=== PATIENT | female | born 1950 | race Caucasian/White ===

== ENCOUNTER 2025-04-19 16:23 | Emergency (ER) | payer MEDICARE, MEDICAID, SELFPAY ==
[2025-04-19 16:24] VITALS: BP 178/104; PULSE 90; RESP 20; TEMP 36.5; O2SAT 91; BMI 37.8
[2025-04-19 16:29] VITALS: O2SAT 97
--- NOTE | 2025-04-19 16:51 | RAD_ITS ---
PROCEDURE: HUMERUS MIN 2 VIEWS 04/19/2025 REASON FOR EXAM: FALL TECHNIQUE: Procedure Code: RADHUM Modality: DX Procedure: HUMERUS MIN 2 VIEWS COMPARISON: None RAD/Humerus min 2 Views IMPRESSION: No acute fracture or dislocations. Moderate degenerative changes of the right shoulder. Extensive soft tissue edema about the humerus. No radiographic foreign body. [id number]
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
--- NOTE | 2025-04-19 17:05 | CT_ITS ---
PROCEDURE: SPINE CERVICAL WITHOUT CONTRAS 04/19/2025 REASON FOR EXAM: FALL TECHNIQUE: Procedure Code: CTSPC Modality: CT Procedure: SPINE CERVICAL WITHOUT CONTRAS Coronal and Sagittal reconstruction series were provided. One or more dose reduction techniques were used (e.g., Automated exposure control, adjustment of the mA and/or kV according to patient size, use of iterative reconstruction technique. RADIATION DOSE SUMMARY: CTDlvol: 70 mGy DLP: 1285 mGycm FINDINGS: Normal appearance of C1, C2 and occipital condyles. Facet arthrosis but no facet fracture. No compression deformity or subluxation. Axial CT images demonstrate normal lamina. Normal pedicles. No facet fracture. No soft tissue masses are seen. CT/Spine Cervical without Contras IMPRESSION: No acute abnormality Reading [facility]
--- NOTE | 2025-04-19 17:05 | CT_ITS ---
PROCEDURE: BRAIN/HEAD WITHOUT CONTRAST 04/19/2025 REASON FOR EXAM: HEAD INJURY TECHNIQUE: Procedure Code: CTBR Modality: CT Procedure: BRAIN/HEAD WITHOUT CONTRAST Coronal and Sagittal reconstruction series were provided. One or more dose reduction techniques were used (e.g., Automated exposure control, adjustment of the mA and/or kV according to patient size, use of iterative reconstruction technique. RADIATION DOSE SUMMARY: CTDlvol: 70 mGy DLP: 1285 mGycm FINDINGS: The bony calvarium appears intact. The sinuses demonstrate chronic opacification on the right with bony thickening. No air-fluid levels. Normal brainstem and cerebellum. There is atherosclerotic calcification of the left supraclinoid ICA. There is no hydrocephalus, acute infarction or hemorrhage. Mild chronic microvascular change in the periventricular white matter. CT/Brain/Head without Contrast IMPRESSION: No acute abnormality Reading Location[facility]
[2025-04-19 18:21] VITALS: BP 189/90; PULSE 70; RESP 16; TEMP 36.3; O2SAT 98
[2025-04-19 18:25] VITALS: BP 189/90; PULSE 71; RESP 16; O2SAT 98
== END 2025-04-19 18:26 | disposition home or self-care (01) ==
PROVIDERS: Emergency Provider Emergency Medicine; Visit Provider Emergency Medicine
DX: S09.90XA Unspecified injury of head, initial encounter (principal); W10.1XXA Fall (on)(from) sidewalk curb, initial encounter; Z87.891 Personal history of nicotine dependence
CPT/HCPCS: 70450; 72125; 73060; 99284